=== PATIENT | female | born 1945 | race Caucasian/White ===

== ENCOUNTER 2017-05-27 08:00 | Outpatient (CLI) | payer MEDICARE, OTHER ==
[2017-06-29] MEDS ORDERED: ACCUPRIL20 MG PO (15:00)
[2017-06-29] MEDS ORDERED: ALENDRONATE SOD70 MG PO (15:00)
[2017-06-29] MEDS ORDERED: PEPCID AC20 MG PO (15:00)
[2017-06-30 08:45] VITALS: BMI 26.7
== END 2017-05-27 23:59 | disposition home or self-care (01) ==
LOC: D.NM 08:00
DX: R10.9 Unspecified abdominal pain (principal)

== ENCOUNTER 2017-06-30 07:07 | Day surgery (SDC) | payer MEDICARE, OTHER ==
[~2017-06-30] VITALS: Ht 157.5 cm; Wt 66.2 kg
[~2017-06-30 07:07] MED LIST: ACCUPRIL20 MG PO; ALENDRONATE SOD70 MG PO; PEPCID AC20 MG PO
[2017-06-30 07:43] LABS: BASOPHILS 0.7 % (0-2); EOSINOPHILS 1.7 % (0-7); IMMATURE GRANULOCYTES 0.1 % (0-5); LYMPHOCYTES 28.5 % (15-50); MCH 30.6 pg (26.0-34.0); MCHC 33.3 g/dL (31.0-37.0); MCV 91.9 fL (80.0-100.0); MEAN PLATELET VOLUME 10.3 fL (7.4-10.4); PLATELET COUNT 239 10x3/uL (130-400); RBC 4.57 10x6/uL (4.00-5.40); RDW 13.9 % (11.5-14.5); WBC 7.2 10x3/uL (4.8-10.8)
[2017-06-30 07:51] LABS: ANION GAP 12.7 mmol/L (8-16); CALCIUM 9.3 mg/dL (8.5-10.1); CARBON DIOXIDE 29.1 mmol/L (21.0-32.0); CREATININE - SERUM 1.1 mg/dL (0.6-1.3); POTASSIUM - SERUM 3.8 mmol/L (3.5-5.1)
[2017-06-30] MEDS ORDERED: BAYER CHEWABLE81 MG PO (08:40)
[2017-06-30] MEDS ORDERED: CALCIUM 500 + D1 TAB PO (08:40)
[2017-06-30 08:45] VITALS: BP 180/87; Ht 157.5 cm; Wt 66.2 kg
[2017-06-30] MEDS ORDERED: HYDROCODONE-APA1 TAB PO (10:35)
--- NOTE | 2017-06-30 11:21 | NUR ---
1115-B/P-131/69, HR-72, RESP-16, SPO2-94% 2LO2. PT PROVIDED WITH CUP OF WATER AND PT TOLERATED DRINKING WELL. AT BEDSIDE.
--- NOTE | 2017-06-30 12:40 | NUR ---
1240 DISCHARGE INSTRUCTIONS COMPLETE. PRESCRIPTIONS FOR PHENERGAN AND NORCO GIVEN. PT GIVEN PHENERGAN PRIOR TO DISCHARGE DUE TO NAUSEA. ESCORTED OUT BY VOLUNTEER.
--- NOTE | 2017-07-04 14:45 | OP ---
PATIENT NAME: DRE IRVIN MEDICAL RECORD: [id number] :45 LOCATION:D.OPS ADMISSION DATE: SURGEON: STIVEN FELIPE MD DATE OF OPERATION: 06/30/2017 PREOPERATIVE DIAGNOSES: 1. Biliary dyskinesia. 2. Hypertension. POSTOPERATIVE DIAGNOSES: 1. Biliary dyskinesia. 2. Hypertension. PROCEDURE: Laparoscopic cholecystectomy. SURGEON: Stiven Felipe MD REPORT OF PROCEDURE: The patient's abdomen was prepped and draped in sterile fashion. A cutdown was made on the superior aspect of the umbilicus, 0 Vicryls were placed on the fascia bilaterally and the fascia was incised with 15-blade. I then bluntly entered the peritoneal cavity and placed a 12-mm Phuc port. Under direct visualization, a 5 mm trocar was placed in the epigastrium and 2 more 5-mm trocars were placed in the right subcostal region. The gallbladder was grasped and elevated. The cystic artery and duct were dissected free and these were clipped proximally and distally and ligated in standard fashion. The gallbladder was taken off the liver bed using electrocautery and placed into the right upper quadrant. Any bleeding from the liver bed was then treated with electrocautery. Upon inspection of the liver, there was noted to be some inflammatory changes to the right inferior lobe of the liver with some precirrhotic changes visible on the outside with cobblestoning to the surface of the liver. Obed-Cut biopsy device was brought through the abdominal wall and 3 separate cores of tissue were removed from the right lobe of the liver. Any bleeding from these were then treated with electrocautery. At this point, the ports and insufflation were then removed and the gallbladder was taken out through the umbilicus. The umbilical fascia was closed with interrupted 0 Vicryls times 3. The wounds were irrigated out with normal saline and infused with 10 mL of 0.25% Marcaine with epinephrine. The skin incisions were all closed with subcutaneous 5-0 Monocryl and dressed appropriately. COMPLICATIONS: None. CONDITION: Stable. ANESTHESIA: General endotracheal and local. BLOOD LOSS: Minimal. TRANSINT:[id number] Voice Confirmation ID: [id number] DOCUMENT ID: [id number] OPERATIVE REPORT [id number] DRE IRVIN STIVEN FELIPE MD at 1445 CC: ROBERT CHENG DO [id number] DICTATION DATE: 06/30/17 1032 BUILDING MAINTENANCE MECHANIC: 06/30/17 1044 [facility] 06/30/17 [address] [place] [address]
== END 2017-06-30 12:40 | disposition home or self-care (01) ==
LOC: D.OPS 07:07 → D.PAN 09:30 → D.OPS 12:40
PROVIDERS: Surgery
DX: K82.8 Other specified diseases of gallbladder (principal); K75.9 Inflammatory liver disease, unspecified; I10 Essential (primary) hypertension; Z01.812 Encounter for preprocedural laboratory examination

== ENCOUNTER → 2017-11-17 12:01 | Outpatient (CLI) | payer MEDICARE, OTHER ==
[2017-06-30 08:45] VITALS: BMI 26.7
[~2017-11-17 12:01] MED LIST changes: +BAYER CHEWABLE81 MG PO; +CALCIUM 500 + D1 TAB PO; +HYDROCODONE-APA1 TAB PO
== END | disposition home or self-care (01) ==
LOC: D.US 12:01
DX: I12.9 Hypertensive chronic kidney disease with stage 1 through stage 4 chronic kidney disease, or unspecified chronic kidney disease (principal); N18.3 Chronic kidney disease, stage 3 (moderate)

== ENCOUNTER → 2019-06-14 11:52 | Outpatient (CLI) | payer MEDICARE, OTHER ==
[2017-06-30 08:45] VITALS: BMI 26.7
== END | disposition home or self-care (01) ==
LOC: D.LABREF 11:52
PROVIDERS: ATTEND Internal Medicine Pulmonary Disease
DX: J47.9 Bronchiectasis, uncomplicated (principal)

== ENCOUNTER → 2019-06-14 11:54 | Outpatient (CLI) | payer MEDICARE, OTHER ==
[2017-06-30 08:45] VITALS: BMI 26.7
[2019-06-15 08:10] LABS: IMMUNOGLOBULIN A 154 mg/dL (64-422); IMMUNOGLOBULIN G 1074 mg/dL (700-1600); IMMUNOGLOBULIN M 116 mg/dL (26-217)
[2019-06-17 18:07] LABS: IMMUNOGLOBULIN E 218 IU/mL (6-495)
== END | disposition home or self-care (01) ==
LOC: D.LAB 11:54
PROVIDERS: ATTEND Internal Medicine Pulmonary Disease
DX: J47.9 Bronchiectasis, uncomplicated (principal)

== ENCOUNTER → 2019-08-14 12:31 | Outpatient (CLI) | payer MEDICARE, OTHER ==
[2017-06-30 08:45] VITALS: BMI 26.7
== END | disposition home or self-care (01) ==
LOC: D.RT 12:31
PROVIDERS: ATTEND Internal Medicine Pulmonary Disease
DX: J47.9 Bronchiectasis, uncomplicated (principal)

== ENCOUNTER 2020-03-20 05:12 | Day surgery (SDC) | payer MEDICARE, OTHER ==
[~2020-03-20] VITALS: Ht 157.5 cm; Wt 65.8 kg
--- NOTE | ~2020-03-20 | OP ---
PATIENT NAME: DRE SPAIN MEDICAL RECORD: [id number] :45 LOCATION:RM ADMISSION DATE: SURGEON: LACI GOLD MD DATE OF OPERATION: 03/20/2020 PREOPERATIVE DIAGNOSIS: Right fifth metatarsal base fracture. POSTOPERATIVE DIAGNOSIS: Right fifth metatarsal base fracture. PROCEDURE PERFORMED: Percutaneous screw fixation, right fifth metatarsal base. INDICATIONS FOR THE PROCEDURE: Ms. Spain is a 74-year-old female with history of right fifth metatarsal base fracture approximately 4 weeks ago. We have been attempting to treat this conservatively, but does not appear to be healing. She has been noncompliant with weightbearing restrictions. I talked with her about this situation and the options for continued conservative versus surgical management. She has elected to proceed with surgery for operative repair. Risks, benefits, alternatives of surgery were discussed with the patient. Consent was obtained. DESCRIPTION OF PROCEDURE: The patient was met in the holding area where her identity and confirmation of the procedure was performed. The right lower extremity was marked. She was taken to the operating room where she was placed supine on the operating table and anesthesia was administered. Tourniquet was applied to the right thigh. Right leg was prepped and draped in a sterile fashion. The patient received preoperative antibiotics and timeout was performed before initiating the case. On initiation of the case, leg was exsanguinated and tourniquet was raised. Total tourniquet time was 19 minutes. X-ray was used to localize the fracture. An incision was then made over the lateral aspect of the fifth metatarsal at the fracture site. I dissected down to the bone and a freer was used to elevate the tissues from around the bone. A small curette was used to debride any tissue within the fracture itself. A K-wire was then placed at the tip of the fifth metatarsal under fluoroscopy and advanced down the metatarsal shaft. A small incision was made at the K-wire. It was measured to a 55. A 55 mm cannulated compression screw was then placed and tightened down. We got good compression at the fracture site with good alignment on imaging. Instruments were removed and final images were obtained. The wound was irrigated thoroughly with saline. Portal sites were closed with a nylon suture. A 0.25% Marcaine with epinephrine was injected around these sites. Sterile dressing was placed. The patient was placed into a well-padded, turned back over to anesthesia where she was awakened, extubated, and taken to recovery room in stable condition. POSTOPERATIVE PLAN: The patient is going to return home with her family today. She needs to remain nonweightbearing on the right leg for the next 6 weeks. We will see her back in clinic in 2 weeks to evaluate her progress. ANESTHESIA: General. COMPLICATIONS: None. ESTIMATED BLOOD LOSS: 5 mL. TRANSINT:[id number] Voice Confirmation ID: [id number] DOCUMENT ID: [id number] OPERATIVE REPORT [id number] DRE SPAIN BRENT M MD CC: [id number] DICTATION DATE: 03/20/20839 LINKER UP: 03/20/20 1216 [facility] 03/20/20 [id number] [place] [address]
[~2020-03-20 05:12] MED LIST changes: +ALBUTEROL SULF8.5 GM INH; +FISH OIL 1,0001 CA1 PO; +PROVENTIL/2.5 MG/3 M INH
[2020-03-20 06:07] LABS: BASOPHILS 0.8 % (0-2); EOSINOPHILS 5.1 % (0-7); HEMATOCRIT 39.3 % (36.0-48.0); HEMOGLOBIN 12.8 g/dL (12-16); IMMATURE GRANULOCYTES 0.1 % (0-5); LYMPHOCYTES 26.2 % (15-50); MCH 29.7 pg (26.0-34.0); MCHC 32.6 g/dL (31.0-37.0); MCV 91.2 fL (80.0-100.0); MONOCYTES 9.7 % (2-11); NEUTROPHILS 58.1 % (40-80); PLATELET COUNT 232 10x3/uL (130-400); RBC 4.31 10x6/uL (4.00-5.40); RDW 14.8 % (11.5-14.5); WBC 7.3 10x3/uL (4.8-10.8)
[2020-03-20 06:28] LABS: CALCIUM 9.2 mg/dL (8.5-10.1); CARBON DIOXIDE 29.6 mmol/L (21.0-32.0); CREATININE - SERUM 1.2 mg/dL (0.6-1.3); POTASSIUM - SERUM 3.6 mmol/L (3.5-5.1)
[2020-03-20 06:33] VITALS: BP 153/83; Ht 157.5 cm; Wt 65.8 kg
--- NOTE | 2020-03-20 10:05 | NUR ---
0956-ASSISTED TO RESTROOM. USED WALKER, NON WEIGHT BEARING TO RIGHT FOOT. DRESSING CDI. PAIN 09/24. VOIDED WITHOUT COMPLICATIONS. REMOVED IV WITH CATH INTACT, COVERED WITH GUAZE, SECURED WITH MEDIPORE TAPE. REVIEWED POST OP INSTRUCTIONS WITH PT AND SPOUSE, BOTH VERBALIZED UNDERSTANDING.
--- NOTE | 2020-03-20 10:13 | NUR ---
1011-PT DRESSED.ESCORTED OUT VIA W/C WITH FAMILY AWAITING TO DRIVE HOME.
== END 2020-03-20 10:11 | disposition home or self-care (01) ==
LOC: D.OPS 05:12
PROVIDERS: ATTEND Orthopaedic Surgery
DX: S92.351A Displaced fracture of fifth metatarsal bone, right foot, initial encounter for closed fracture (principal); X58.XXXA Exposure to other specified factors, initial encounter; E78.5 Hyperlipidemia, unspecified; F41.9 Anxiety disorder, unspecified; I10 Essential (primary) hypertension; K21.9 Gastro-esophageal reflux disease without esophagitis

== ENCOUNTER 2020-04-28 06:05 | Day surgery (SDC) | payer MEDICARE, OTHER ==
[~2020-04-28] VITALS: Ht 157.5 cm; Wt 66.4 kg
[2020-04-28 06:23] LABS: HEMATOCRIT 41.2 % (36.0-48.0); HEMOGLOBIN 13.2 g/dL (12-16); MCH 29.3 pg (26.0-34.0); MCV 91.6 fL (80.0-100.0); MEAN PLATELET VOLUME 9.6 fL (7.4-10.4); RBC 4.5 10x6/uL (4.00-5.40); RDW 14.6 % (11.5-14.5); WBC 6.2 10x3/uL (4.8-10.8)
[2020-04-28 06:53] VITALS: BP 162/78; Ht 157.5 cm; Wt 66.4 kg
--- NOTE | 2020-04-28 08:52 | NUR ---
0845 IV DC'D. CATHETER TIP INTACT. NO BLEEDING AT SITE. BANDAID APPLIED. REVIEWED DISCHARGE INSTRUCTIONS WITH PT. BOTH PT AND HER VOICE UNDERSTANDING OF INSTRUCTIONS.
--- NOTE | 2020-04-29 08:32 | OP ---
PATIENT NAME: DRE IRVIN MEDICAL RECORD: [id number] :45 LOCATION:RM ADMISSION DATE: SURGEON: MAG LOPEZ DO DATE OF OPERATION: 04/28/2020 PROCEDURE: EGD with biopsies. INDICATION FOR PROCEDURE: Epigastric tenderness and bloating. SCOPE: Olympus video gastroscope. MEDICATIONS: Propofol 220 mg IV per anesthesia. ESTIMATED BLOOD LOSS: Minimal. COMPLICATIONS: None. FINDINGS AND DESCRIPTION OF PROCEDURE: Informed consent was given. The patient was made comfortable with the above medication. After reaching an adequate level of sedation by slow IV push, the patient was placed in the left side. The endoscope was advanced under direct visualization through the mouth to the second portion of the duodenum with ease. The esophagus appeared normal down to the GE junction. At the GE junction, there were minor changes consistent with LA class A reflux-induced esophagitis. The endoscope was advanced beyond the GE junction into the stomach and retroflexed to view the cardia and fundus, which appeared normal. The body of the stomach as well as the antrum appeared normal. Cold forceps biopsies were taken from the antrum and incisura to submit for histopathology and to rule out the presence of H. pylori. The endoscope was advanced beyond the pylorus into the second portion of the duodenum. The duodenum appeared normal in its entirety of the mucosa which was visualized. The endoscope was withdrawn from the patient. The patient tolerated the procedure well. There were no complications. IMPRESSIONS: 1. LA class A reflux-induced esophagitis. 2. Otherwise, normal upper endoscopy. PLAN AND RECOMMENDATIONS: 1. Discharge home when recovery parameters are met. 2. Follow up biopsy specimen results. 3. Gastroesophageal reflux disease and reflux precautions. 4. Continue current medications consisting of Pepcid 20 mg daily. 5. Notify GI clinic if symptoms return. The patient currently denies any specific symptoms. TRANSINT:[id number] Voice Confirmation ID: [id number] DOCUMENT ID: [id number] OPERATIVE REPORT [id number] DRE IRVIN MAG LOPEZ DO at 0832 CC: [id number] DICTATION DATE: 04/28/20 08 CAR HIKER: 04/28/20 1440 [facility] 04/28/20 [id number]
== END 2020-04-28 08:58 | disposition home or self-care (01) ==
LOC: D.OPS 06:05
PROVIDERS: Anesthesiology; ATTEND Internal Medicine Gastroenterology
DX: R10.816 Epigastric abdominal tenderness (principal); F45.8 Other somatoform disorders; K21.0 Gastro-esophageal reflux disease with esophagitis; I10 Essential (primary) hypertension; Z86.010 Personal history of colon polyps

== ENCOUNTER 2020-05-19 08:59 | Day surgery (SDC) | payer MEDICARE, OTHER ==
[~2020-05-19] VITALS: Ht 157.5 cm; Wt 665.5 kg
--- NOTE | ~2020-05-19 | OP ---
PATIENT NAME: DRE IRVIN MEDICAL RECORD: [id number] :45 LOCATION:D.OPS ADMISSION DATE: SURGEON: MAG LOPEZ DO DATE OF OPERATION: 05/19/2020 PROCEDURE: Colonoscopy with polypectomy. INDICATION FOR PROCEDURE: Screening colonoscopy, history of colon polyps. SCOPE: Olympus video pediatric colonoscope. MEDICATIONS: Propofol 450 mg IV per anesthesia. WITHDRAWAL TIME: 16 minutes. ESTIMATED BLOOD LOSS: Minimal. COMPLICATIONS: None. FINDINGS: Informed consent was given. The patient was made comfortable with the above medication. After reaching an adequate level of sedation by slow IV push, the patient was placed on her left side. A digital rectal examination was performed and was normal. The endoscope was then advanced under direct visualization through the rectum to the cecum, confirmed by the presence of the appendiceal orifice and ileocecal valve. The endoscope was slowly withdrawn and mucosa was carefully examined. The prep quality was good. There were 3 polyps visualized on today's examination. One was located in the cecum. It was a benign-appearing sessile polyp, which measured approximately 3-4 mm in diameter. It was removed using hot forceps. In the sigmoid colon, there were 3 separate polyps, which were benign appearing and sessile and ranged in size from 3 to 4 mm in diameter. They were all removed using hot forceps. There was evidence of mild diverticulosis involving the descending and sigmoid colon. Retroflexion was performed in the rectum with visualization of a normal-appearing rectal wall. The endoscope was withdrawn from the patient. The patient tolerated the procedure well and there were no complications. IMPRESSION: 1. A few polyps visualized throughout the cecum and sigmoid colon. They were removed using hot forceps. 2. Mild diverticulosis of the descending and sigmoid colon. PLAN AND RECOMMENDATIONS: 1. Discharge home when recovery parameters are met. 2. Follow up biopsy specimen results. 3. High-fiber diet. 4. Continue current medications. 5. Recall colonoscopy in 5 years. NTS:[id number] Voice Confirmation ID: [id number] DOCUMENT ID: [id number] OPERATIVE REPORT [id number] DRE IRVINMAG GAMBLE DO CC: [id number] DICTATION DATE: 05/19/20 1232 CENTRIFUGAL EXTRACTOR OPERATOR: 05/19/208 [facility] 05/19/20 [place] [id number]
[2020-05-19 09:21] LABS: HEMATOCRIT 40.1 % (36.0-48.0); HEMOGLOBIN 13.4 g/dL (12-16); MCH 30.1 pg (26.0-34.0); MCHC 33.4 g/dL (31.0-37.0); MCV 90.1 fL (80.0-100.0); MEAN PLATELET VOLUME 9.8 fL (7.4-10.4); RBC 4.45 10x6/uL (4.00-5.40); RDW 14.1 % (11.5-14.5); WBC 8.6 10x3/uL (4.8-10.8)
[2020-05-19 09:33] LABS: ANION GAP 9.3 mmol/L (8-16); CALCIUM 9.3 mg/dL (8.5-10.1); CARBON DIOXIDE 28.7 mmol/L (21.0-32.0); CREATININE - SERUM 1.1 mg/dL (0.6-1.3)
[2020-05-19 09:38] VITALS: BP 168/82; Ht 157.5 cm; Wt 665.5 kg
--- NOTE | 2020-05-19 13:08 | NUR ---
1259 IV DC'D. CATHETER TIP INTACT. PRESSURE HELD UNTIL BLEEDING STOPPED. BANDAID APPLIED. REVIEWED DISCHARGE INSTRUCIONS WITH PT AND HER WHO BOTH VOICE UNDERSTANDING OF INSTRUCTIONS.
== END 2020-05-19 13:11 | disposition home or self-care (01) ==
LOC: D.OPS 08:59
PROVIDERS: Anesthesiology; ATTEND Internal Medicine Gastroenterology
DX: Z86.010 Personal history of colon polyps (principal); K63.5 Polyp of colon; K57.30 Diverticulosis of large intestine without perforation or abscess without bleeding; Z12.11 Encounter for screening for malignant neoplasm of colon; R10.13 Epigastric pain; R14.0 Abdominal distension (gaseous)